=== PATIENT | male | born 1955 | race Caucasian/White ===

== ENCOUNTER 2019-03-12 13:53 | Emergency (ER) | payer OTHER ==
[~2019-03-12] VITALS: Ht 170.2 cm; Wt 100.0 kg
[~2019-03-12 13:53] MED LIST: HYDR-4011 PO; INDO-39 PO
[2019-03-12 14:03] VITALS: Ht 170.2 cm; Wt 100.0 kg
[2019-03-12] MEDS ORDERED: KETOROLAC 60 MG INJ IM STA (14:31)
[2019-03-12 14:50] VITALS: BP 174/94; PULSE 90; RESP 18
== END 2019-03-12 14:51 | disposition home or self-care (01) ==
LOC: FTE 13:53
DX: M10.9 Gout, unspecified (principal); I10 Essential (primary) hypertension
CPT/HCPCS: 96372; J1885; Z7502